=== PATIENT | female | born 1995 | race Caucasian/White ===

== ENCOUNTER 2019-12-21 09:09 | Outpatient (CLI) | payer OTHER | END 2019-12-21 09:25 | disposition home or self-care (01) | LOC: SONOGRAMA 09:09 | PROVIDERS: ATTEND Pathology Anatomic Pathology & Clinical Pathology | DX: E06.3 Autoimmune thyroiditis (principal); E04.2 Nontoxic multinodular goiter ==

== ENCOUNTER 2020-06-09 09:03 | Outpatient (CLI) | payer OTHER | END 2020-06-09 09:04 | disposition home or self-care (01) | LOC: SONOGRAMA 09:03 | PROVIDERS: ATTEND Pathology Anatomic Pathology & Clinical Pathology | DX: E04.2 Nontoxic multinodular goiter (principal) ==